=== PATIENT | female | born 1965 | race Caucasian/White ===

== ENCOUNTER 2022-09-29 08:05 | Outpatient (CLI) | payer OTHER, SELFPAY ==
--- NOTE | ~2022-09-29 | MM_ITS ---
EXAMINATION: MM screening [facility] HISTORY: Screening TECHNIQUE: Craniocaudal and mediolateral oblique 3-D tomosynthesis images were obtained and synthetic 2-D images were generated. CAD analysis was submitted and interpreted. COMPARISON: No prior mammogram is available for comparison at this institution. BREAST PARENCHYMAL COMPOSITION: The breasts are almost entirely fatty. FINDINGS: There is no evidence of suspicious mass, calcification, or architectural distortion to sugg est malignancy in either breast. There has been no suspicious interval change. There are benign bilat eral breast calcifications. IMPRESSION: 1. No mammographic evidence of malignancy. 2. Recommend routine screening mammography in one year. BI-RADS Category 1: Negative Reviewed, dictated and finalized at location A. IT RELATIONSHIP MANAGER
== END 2022-09-29 08:06 | disposition home or self-care (01) ==
LOC: ANHIMG 08:07
PROVIDERS: PCP Physician Assistant; Visit Provider Physician Assistant
DX: Z12.31 Encounter for screening mammogram for malignant neoplasm of breast (principal)
CPT/HCPCS: 77063; 77067

== ENCOUNTER 2023-10-19 07:39 | Outpatient (CLI) | payer MEDICAID, SELFPAY ==
--- NOTE | ~2023-10-19 | MM_ITS ---
EXAMINATION: MM screening [facility] HISTORY: Screening mammogram TECHNIQUE: Craniocaudal and mediolateral oblique 3-D tomosynthesis images were obtained and synthetic 2-D images were generated. CAD analysis was submitted and interpreted. COMPARISON: 09/29/2022 BREAST PARENCHYMAL COMPOSITION: There are scattered areas of fibroglandular density. FINDINGS: No suspicious mass, calcification, or architectural distortion are identified in either leonor ast to suggest malignancy. There has been no suspicious interval change. IMPRESSION: 1. No mammographic evidence of malignancy. 2. Recommend routine screening mammography in one year. BI-RADS Category 1: Negative Reviewed, dictated and finalized at location A. RER DEMOLITION
== END 2023-10-19 07:40 | disposition home or self-care (01) ==
LOC: ANHIMG 07:42
PROVIDERS: PCP Physician Assistant; Visit Provider Physician Assistant
DX: Z12.31 Encounter for screening mammogram for malignant neoplasm of breast (principal)
CPT/HCPCS: 77063; 77067

== ENCOUNTER 2024-12-05 08:10 | Outpatient (CLI) | payer OTHER, SELFPAY ==
--- NOTE | ~2024-12-05 | MM_ITS ---
EXAMINATION: MM screening [facility] HISTORY: Screening mammogram TECHNIQUE: Craniocaudal and mediolateral oblique 3-D tomosynthesis images were obtained and synthetic 2-D images were generated. CAD analysis was submitted and interpreted. COMPARISON: 10/19/2023, 09/29/2022 BREAST PARENCHYMAL COMPOSITION:Not Dense. The breasts are almost entirely fatty FINDINGS: No suspicious mass, calcification, or architectural distortion are identified in either leonor ast to suggest malignancy. There has been no suspicious interval change. IMPRESSION: No mammographic evidence of malignancy. Recommend routine screening mammography in one year. BI-RADS Category 1: Negative Reviewed, dictated and finalized at location . RS CUSTODIAN
--- OUTSIDE RECORDS SUMMARY | 2024-12-05 08:22 | XMS_ITS | Clinical Summary ---
Author Organization [facility] Address [address] [place] [address] Care Team Providers Care Switchboard Mechanic Name Role Phone Dee Dee Kaplan NP Primary Care Provider [phone] Allergies No known active allergies Medications amLODIPine 10 MG tabletIndications:E ssential hypertension Take 1 tablet (10 mg total) by mouth daily. 90 tablet 0 Active lisinopril 20 MG tabletIndications:E ssential hypertension TAKE TWO TABLETS BY MOUTH ONCE DAILY. Lab work needed for future refills. 60 tablet 0 Active atorvastatin 20 MG tabletIndications:O ther hyperlipidemia Take 1 tablet (20 mg total) by mouth daily. Lab work needed for future refills. 30 tablet 0 Active hydroCHLOROthiazide 12.5 MG capsuleIndications: Essential hypertension Take 1 capsule (12.5 mg total) by mouth daily. Lab work needed for future refills. 30 capsule 0 Active metFORMIN 850 MG tabletIndications:D iabetes mellitus type 2 in obese ([facility]/HCC HHS/HCC) Take 1 tablet (850 mg total) by mouth 3 (three) times daily with meals. Lab work needed for future refills. 90 tablet 0 Active GLYBURIDE 5 MG tabletIndications:D iabetes mellitus type 2 in obese ([facility]/HCC HHS/HCC) TAKE TWO TABLETS BY MOUTH EVERY 12 HOURS , NEEDS LAB WORK FOR FUTURE REFILLS 120 tablet 0 Active levothyroxine (EUTHYROX) 150 MCG tabletIndications:H ypothyroidism, unspecified type Take 1 tablet (150 mcg total) by mouth every morning. Lab work needed for future refills. 30 tablet 0 Active Active Problems No known active problems Immunizations Name Administration Dates Next Due Influenza Adult (Generic) 07/09/2019,07/16/2018, 09/25/2017,09/30/2016 Social History Tobacco Use Types Packs/Day Years Used Date Smoking Tobacco: Never Smokeless Tobacco: Never Comments Unknown Sex and Gender Information Value Date Recorded Sex Assigned at Not on file Legal Sex Female 6:16 PM CDT Gender Identity Not on file Sexual Orientation Not on file Last Filed Vital Signs Vital Sign Reading Time Taken Comments Blood Pressure 134/82 01/25/2020 9:51 AM CDT Pulse 84 01/25/2020 9:51 AM CDT Temperature 36.4 C (97.6 F) 01/25/2020 9:51 AM CDT Respiratory Rate 16 01/25/2020 9:51 AM CDT Oxygen Saturation 98% 01/25/2020 9:51 AM CDT Inhaled Oxygen Concentration - - Weight 127.5 kg (281 lb) 01/25/2020 9:51 AM CDT Height 167.6 cm (5' 6 ) 12/24/2017 7:57 AM CDT Body Mass Index 45.35 12/24/2017 7:57 AM CDT Plan of Treatment Health Maintenance Due Date Last Done Comments Cervical Cancer Screening Pap Smear (Age 30 to 64) Every 3 Years 1966 Colorectal Cancer Screening Colonoscopy (10 Years) 1966 Hepatitis C 02/15/1984 DTaP, Tdap and Td Vaccines (1 - Tdap) 1985 Hepatitis B Vaccines (1 of 3 - 19+ 3-dose series) 1985 Cervical Cancer Screening Pap with HPV Testing (Age 30 to 64) Every 5 Years 02/15/1996 Cervical Cancer Screening with HPV 02/15/1996 Mammogram Screening 2006 Zoster Vaccines (1 of 2) 02/15/2016 Annual Physical 01/24/2021 01/25/2020 COVID-19 Vaccine (1 - 2023- season) 2024 Influenza Adult (#1) 2024 07/09/2019, 07/16/2018, 09/25/2017, Additional history exists Meningococcal B Vaccine Aged Out No l onger eligible based on patient's age to complete this topic Meningococcal Vaccine Aged Out No felicia carlos manuel eligible based on patient's age to complete this topic Pneumococcal Vaccine: Pediatrics (0 to 5 Years) and At-Risk Patients (6 to 64 Years) Aged Out No longer eligible based on patient's age to complete this topic RSV Immunizations Under 20 Months Aged Out No longer eligible based on patient's age to complete this topic Care Teams Switchboard Mechanic Relationship Specialty Start Date End Date Dee Dee [place] [address] PCP - General NURSE PRACTITIONER 01/25/20
== END 2024-12-05 08:11 | disposition home or self-care (01) ==
LOC: ANHIMG 08:12
PROVIDERS: PCP Physician Assistant; Visit Provider Physician Assistant Medical
DX: Z12.31 Encounter for screening mammogram for malignant neoplasm of breast (principal)
CPT/HCPCS: 77063; 77067